=== PATIENT | female | born 1950 | race Caucasian/White ===

== ENCOUNTER → 2020-02-13 | Outpatient (CLI) | payer MEDICARE ==
--- NOTE | 2020-02-13 16:44 | Diagnostic Imaging Report ---
PROCEDURE: CT abdomen and pelvis without contrast. TECHNIQUE: Multiple contiguous axial images were obtained through the abdomen and pelvis without the use of intravenous contrast. Auto Exposure Controls were utilized during the CT exam to meet ALARA standards for radiation dose reduction. INDICATION: Right-sided abdominal pain, history of stones. CORRELATION STUDY: None. FINDINGS: LOWER THORAX: Minimal scarring or atelectasis in the left lung base. Small hiatal hernia. Heart size normal. LIVER: Unremarkable. GALLBLADDER: Cholecystectomy. SPLEEN: Unremarkable. PANCREAS: Unremarkable. ADRENAL GLANDS: Unremarkable. KIDNEYS: Slight generalized atrophic changes. 17 mm rounded low-density mass in the left kidney interpolar region favors cyst. No ureteric calcification or obstruction. ABDOMINAL AORTA: Unremarkable, nonaneurysmal. GASTROINTESTINAL TRACT: Stomach mildly distended with retained gastric contents. No small bowel obstruction. Udpd-do-[id number] severity fecal retention. Normal appendix. URINARY BLADDER: 21 x 15 x 18 mm mass along the right posterolateral urinary bladder wall near the right UVJ. REPRODUCTIVE: Uterus and adnexa unremarkable. OSSEOUS STRUCTURES: No acute abnormality. OTHER: No suggestion for pathologically enlarged abdominal and/or pelvic lymphadenopathy. IMPRESSION: 1. 2 cm bladder based mass should be concerning for primary bladder neoplasm until otherwise. Negative for nephroureterolithiasis or obstructive uropathy currently; however, this mass is adjacent to the right UVJ. Report given to Analisa Rodriguez APRN at 4:44 PM 02/13/2020/guy Dictated by: Dictated on workstation # [id number]
--- NOTE | 2020-02-16 15:12 | NUR ---
PT REQUESTED REPORT BE MAILED TO PATIENTS ADDRESS. REPORT SENT TO [facility] BY CLIENT RELATIONSHIP EXECUTIVE ON 02/16/2020. REPORT WILL BE MAILED OUT FROM THERE. HR 02/16/2020
== END ==
LOC: RAD FS 14:44
PROVIDERS: ATTEND Nurse Practitioner Family
DX: N32.89 Other specified disorders of bladder (principal); Z87.442 Personal history of urinary calculi
CPT/HCPCS: 74176

== ENCOUNTER → 2020-03-12 | Outpatient (CLI) | payer MEDICARE ==
--- NOTE | 2020-03-12 12:56 | Diagnostic Imaging Report ---
INDICATION: Postmenopausal. COMPARISON: None. FINDINGS: The bone mineral density of hips and spine was measured. There are no prior studies available for comparison. The total T score for the spine is -0.4. The total T score for the left hip is -0.2 and for the right hip 0.0. All of these indicate are within normal limits. However, the T score for the left femoral neck is -1.2 and for the right femoral neck -1.3. These T-scores fall within the range of mild osteopenia. AP Spine L1-L4: [BMD (g/cm2): 1.152] [T-Score: -0.4] [Z-Score: 1.6] [BMD Previous: NA] [BMD % Change: NA] LT Hip Neck: [BMD (g/cm2): 0.871] [T-Score: -1.2] [Z-Score: 0.7] LT Hip Total: [BMD (g/cm2):0.982] [T-Score:-0.2] [Z-Score: 1.5] [BMD Previous: NA] [BMD % Change: NA] RT Hip Neck: [BMD (g/cm2):0.855] [T-Score:-1.3] [Z-Score:0.6] RT Hip Total: [BMD (g/cm2):1.007] [T-score:0.0] [Z-Score:1.7] [BMD Previous:NA] [BMD % Change:NA] *Indicates significant change from prior examination based on 95% confidence level. World Health Organization criteria for BMD interpretation classify patients as Normal (T-score at or above -1.0), Osteopenic (T-score between -1.0 and -2.5) or Osteoporotic (T-score at or below -2.5). LIMITATIONS AND MODIFICATION: None. FRACTURE RISK (FRAX SCORE): The ten year probability of (%): Major Osteoporotic Fracture: [NA] Hip Fracture: [NA] IMPRESSION: 1. The total T-scores for the hips and spine are within normal limits. 2. There is mild osteopenia of the femoral necks, however. 3. See below National Osteoporosis Foundation guidelines on when to potentially initiate pharmacologic therapy. Based on the National Osteoporosis Foundation Guidelines, pharmacologic treatment should be initiated in any of the following, unless clinical conditions suggest otherwise: * Any patient with prior fragility fracture of the hip or vertebrae. A spine fracture indicates 5X risk for subsequent spine fracture and 2X risk for subsequent hip fracture. * Osteoporosis (T-score <-2.5). * Postmenopausal women and men age 50 and older with low bone mass/osteopenia (T-score between -1.0 and -2.5) by DXA and 10-year major osteoporotic fracture greater than 20% or a 10-year probability of hip fracture greater than 3%. These fracture risks are supplied above in the FRAX score, if applicable. * Clinician judgement and/or patient preferences may indicate treatment for people with 10-year fracture probabilities above or below these levels. Dictated by: Dictated on workstation # [id number]
== END ==
LOC: RAD 11:59
PROVIDERS: ATTEND Family Medicine
DX: M85.88 Other specified disorders of bone density and structure, other site (principal); Z78.0 Asymptomatic menopausal state
CPT/HCPCS: 77080

== ENCOUNTER → 2020-07-08 | Outpatient (CLI) | payer MEDICARE ==
--- NOTE | 2020-07-08 09:27 | Diagnostic Imaging Report ---
PROCEDURE: CT maxillofacial without contrast. TECHNIQUE: Multiple contiguous axial images were obtained through the facial bones without the use of intravenous contrast. Auto Exposure Controls were utilized during the CT exam to meet ALARA standards for radiation dose reduction. INDICATION: Facial pressure and pain. There are no prior studies available for comparison. The paranasal sinuses are generally clear and well aerated. The ostiomeatal complexes are patent. The nasal septum is slightly bowed to the right. The bone windows show no evidence for a fracture or for a destructive lesion. The orbits are symmetrical and within normal limits. The intracranial contents, where visualized, show no sign of an acute abnormality. IMPRESSION: 1. There is no evidence for active sinus disease. 2. There is no acute bony abnormality identified. Dictated by: Dictated on workstation # [id number]
== END ==
LOC: RAD FS 08:54
PROVIDERS: ATTEND Family Medicine
DX: J32.0 Chronic maxillary sinusitis (principal)
CPT/HCPCS: 70486

== ENCOUNTER → 2021-02-25 | Outpatient (CLI) | payer MEDICARE ==
--- NOTE | 2021-02-25 13:17 | Diagnostic Imaging Report ---
EXAMINATION: CT abdomen and pelvis without contrast. TECHNIQUE: Multiple contiguous axial images were obtained through the abdomen and pelvis without the use of intravenous contrast. All CT scans use one or more of the following dose optimizing techniques: automated exposure control, MA and/or KvP adjustment based on patient size and exam type or iterative reconstruction. HISTORY: Flank pain COMPARISON: 02/13/2020 FINDINGS: Limited views of the lower thorax show linear atelectasis in the left lower lobe. The liver is normal without focal lesion. There is no biliary ductal dilation. Gallbladder is surgically absent. Pancreas is normal. Spleen is normal. Adrenal glands are normal. There is a simple cyst in left kidney. There is a 1 mm stone in the right kidney. There are no ureteral stones. There is no hydronephrosis. Urinary bladder is normal. Visualized bowel is normal in caliber without obstruction or inflammation. No free fluid or air. No abdominal or pelvic lymphadenopathy. Aorta is normal in caliber without aneurysm. There are no suspicious osseus lesions. IMPRESSION: 1. Nonobstructing 1 mm stone in right kidney. No ureteral stones. Dictated by: Dictated on workstation # [id number]
== END ==
LOC: RAD FS 12:33
PROVIDERS: ATTEND Nurse Practitioner Family
DX: N20.0 Calculus of kidney (principal); N32.89 Other specified disorders of bladder
CPT/HCPCS: 74176